=== PATIENT | male | born 1955 | race Caucasian/White ===

== ENCOUNTER 2021-03-26 09:49 | Day surgery (SDC) | payer OTHER ==
[~2021-03-26] VITALS: Ht 175.3 cm; Wt 89.8 kg
[~2021-03-26 09:49] MED LIST: Aspir 8181 MG PO; ENOX40I SC; GLUCOSAMINE-CH1 EA48 PO; HYDACE5 PO; HYDR1TAB94 PO; KRILL OIL500 MG PO; MSM500 MG PO; MULTI-VITAMIN1 EAC2 PO; MULVITA; SERT25 PO; SERT50
== END 2021-03-26 12:05 | disposition home or self-care (01) ==
LOC: ORSCSDS 09:49
PROVIDERS: Internal Medicine Gastroenterology
PROC: 0DBL8ZX Excision of Transverse Colon, Via Natural or Artificial Opening Endoscopic, Diagnostic (ICD-10-PCS; principal; 2021-03-26 11:00)
DX: Z12.11 Encounter for screening for malignant neoplasm of colon (principal); D12.3 Benign neoplasm of transverse colon; E78.5 Hyperlipidemia, unspecified; Z79.899 Other long term (current) drug therapy; Z79.82 Long term (current) use of aspirin
CPT/HCPCS: 88305; J2405; J2704; J7120

== ENCOUNTER → 2021-03-31 | Outpatient (CLI) | payer OTHER | LOC: LAB SHORT 09:51 → PLD 09:51 | DX: D48.5 Neoplasm of uncertain behavior of skin (principal) | CPT/HCPCS: 88305 ==

== ENCOUNTER → 2021-07-29 | Outpatient (CLI) | payer OTHER | END | disposition home or self-care (01) | LOC: LAB SHORT 15:12 | DX: C44.319 Basal cell carcinoma of skin of other parts of face (principal) | CPT/HCPCS: 88305 ==

== ENCOUNTER → 2023-08-13 | Outpatient (CLI) | payer OTHER ==
[2023-08-17 16:14] LABS: PSA, %Free 14.7 %; PSA, Free 0.886 ng/mL
== END | disposition home or self-care (01) ==
LOC: LAB 08:08 → LAB SHORT 08:08
PROVIDERS: Urology
DX: R97.20 Elevated prostate specific antigen [PSA] (principal)
CPT/HCPCS: 36415; 84153; 84154